=== PATIENT | female | born 1940 | race Caucasian/White ===

== ENCOUNTER 2019-02-11 11:53 | Inpatient (IN) ==
[2019-02-11] MEDS ORDERED: ONDANSETRON 4 MG/2 ML VIAL IV ONE (12:18)
[2019-02-11] MEDS ORDERED: 0.9 % SODIUM CHLORIDE 500 ML IV ONE (12:18)
--- NOTE | 2019-02-11 12:23 | Emergency Department Note ---
General Adult HPI - General Chief complaint: Fall Stated complaint: Fall, n/v Time Seen by Provider: 02/11/19 11:59 Source: EMS Mode of arrival: EMS Limitations: no limitations - History of Present Illness HPI Narrative: 78-year-old female patient presents emergency department via ambulance with chief complaint of worsening productive cough, fever, generalized weakness. 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 Patient has had a cough off and on. Unfortunately, she woke up this morning feeling very fatigued and somewhat nauseated. Her caregiver attempts to get out of bed today and during ambulation the patient was very lethargic and able to move about. She slumped forward and her caregiver had to quickly put her back in bed. Afterward, her caregiver contacted 911 and the patient was transported for evaluation. Upon arrival patient is awake, alert, and talkative. She does mention not feeling well for the last several weeks. She admits to chills today. She denies overt fevers or sweats. She admits to the productive cough producing "green" colored sputum. She denies sinus congestion or runny nose. She denies shortness of breath. She denies retrosternal chest pain or palpitations. She admits to nausea and has vomited once during the ambulance ride to the ER. She denies diarrhea. She admits to focal weakness to his left side associated with the CVA. Her past medical history is consistent for her type 2 diabetes, hypertension, CVA, postherpetic neuralgia, vitamin D deficiency, and dyslipidemia. - Related Data Home Medications Medication Instructions Recorded Confirmed Atorvastatin [Lipitor] 40 mg PO HS 02/11/19 02/11/19 Calcitonin [Miacalcin] 1 spray NS Q48H 02/11/19 02/11/19 Clopidogrel Bisulfate [Plavix] 75 mg PO DAILY 02/11/19 02/11/19 Escitalopram [Lexapro] 20 mg PO DAILY 02/11/19 02/11/19 Gabapentin [Neurontin] 100 mg PO TID 02/11/19 02/11/19 Losartan [Cozaar] 50 mg PO DAILY 02/11/19 02/11/19 Timolol 0.5% Ophth Drops [Timoptic 1 gtt OU BID 02/11/19 02/11/19 0.5% Ophth Drops] metFORMIN [Glucophage] 500 mg PO BID 02/11/19 02/11/19 Allergies Allergy/AdvReac Type Severity Reaction Status Date / Time No Known Drug Allergies Allergy Verified 02/11/19 13:09 Review of Systems All systems ED: reviewed and negative except as stated. Past Medical History - Social History smoking status: Never smoker Physical Exam Limitations: no limitations General appearance: alert, in no apparent distress (no acute respiratory distress.), malaise Head: atraumatic, normocephalic, other (left-sided facial droop noted.) Eye: Present: normal appearance, PERRL, EOMI. Absent: scleral icterus, conjunctival injection ENT: Present: normal oropharynx, mucous membranes moist. Absent: nasal congestion Neck: Present: full ROM, trachea midline. Absent: tenderness, lymphadenopathy Chest: Present: symmetric chest wall rise Respiratory: Present: decreased breath sounds (decreased breath sounds throughout.), other (patient has poor inspiratory effort on exam.). Absent: respiratory distress, rales/crackles, wheezes, prolonged expiratory phase Cardiovascular: Present: regular rate, normal rhythm. Absent: systolic murmur, diastolic murmur Abdominal: Present: soft. Absent: distention, tenderness, guarding, rebound, rigidity, organomegaly, mass Extremities: Present: normal capillary refill. Absent: full ROM (considerable decreased range of motion to the left upper and lower extremity.), tenderness Back: Present: full ROM. Absent: CVA tenderness (R) Neurological: Present: alert, oriented X3, motor sensory deficit (left-sided weakness on exam.), reflexes normal. Absent: normal gait Psychiatric: Present: depressed, other (acutely ill appearing.) Skin: Present: warm, dry Course Course Narrative: Patient is brought into the emergency department and a history and physical examination performed. Saline lock was established and laboratory studies were drawn. Chest x-ray was obtained and reviewed. 500 mL normal saline was started as a bolus. A review of her laboratory studies show following: CBC elevated WBC 13.3, granulocyte percentage 87.5, granulocyte #11.6, all others normal limits. CMP elevated CO2 21, glucose 167, all others the normal limits. Pro- calcitonin less than 0.05. Chest x-ray read as small patchy right basilar infiltrate. Urinalysis showed evidence of infection in the emergency department and was sent to the lab for cough majority testing. Upon reevaluation patient is resting on the emergency room green but continues to cough. I discussed all the findings with the patient and her family and we discussed options for treatment. She is hasn't to go home and attempt outpatient antibiotic therapy due to her immobility and deconditioned state. With this in mind, I reached out to the hospitalist provider (Dr. Thurston) and discussed there are hesitation about being discharged home. Due to her immobility, worsening condition, developing pneumonia, and other comorbidities it was thought best that she be evaluated by the hospitalist and likely admitted for short stay. At this time patient is going to be admitted under the care of the hospitalist (Dr. Thurston). All further treatment decisions and modalities be carried out by hospitalist. Vital Signs Temperature 98.6 F 02/11/19 11:54 Pulse Rate 92 H 02/11/19 11:54 Respiratory Rate 18 02/11/19 11:54 Blood Pressure 128/76 02/11/19 11:54 Pulse Oximetry (%) 90 02/11/19 11:54 Temperature 97.7 F 02/12/19 20:00 Pulse Rate 66 02/12/19 20:00 Respiratory Rate 18 02/12/19 20:00 Blood Pressure 100/68 02/12/19 20:00 Pulse Oximetry (%) 93 02/12/19 20:00 Medical Decision Making - Lab Data Lab results reviewed: Yes I reviewed the patient's lab results. Result diagrams: 02/12/19 05:21 02/12/19 05:21 Lab Results 02/11/19 02/11/19 02/11/19 Range/Units 12:30 12:30 12:30 WBC 13.3 H (4.5-11.0) K/mcL RBC 4.28 (4.00-5.20) M/mcL Hgb 12.5 (12.0-15.0) g/dL Hct 37.5 (36.0-48.0) % POC Hct 37.0 (36.0-48.0) % MCV 87.5 (80.0-100.0) fL MCH 29.2 (26.0-34.0) pg MCHC 33.4 (31.0-36.0) g/dL RDW 14.3 (11.5-14.5) % Plt Count 219 (140-440) K/mcL MPV 8.8 (7.4-10.4) fL Gran % 87.5 H (38.0-78.0) % Lymph % (Auto) 6.1 L (15.5-49.0) % [place] % (Auto) 6.0 (1.0-12.0) % Eos % (Auto) 0.1 (0.0-7.0) % Baso % (Auto) 0.3 (0.0-2.0) % Gran # 11.6 H (1.8-8.0) K/mcL Lymph # (Auto) 0.8 L (1.5-4.8) K/mcL [place] # (Auto) 0.8 (0.1-0.9) K/mcL Eos # (Auto) 0 (0.0-0.7) K/mcL Baso # (Auto) 0 (0.0-0.3) K/mcL POC Sodium 139 (133-145) mmol/L Sodium 138 (133-145) mmol/L POC Potassium 3.5 (3.3-5.1) mmol/L Potassium 3.6 (3.3-5.1) mmol/L POC Chloride 104 (96-108) mmol/L Chloride 102 (96-108) mmol/L Carbon Dioxide 21 L (22-30) mmol/L POC Total CO2 21 L (22-30) mmol/L Anion Gap 15.0 (8-16) POC BUN 15 (8-23) mg/dl BUN 15 (8-23) mg/dl Creatinine 0.8 (0.6-1.1) mg/dl POC Creatinine 0.7 (0.6-1.1) mg/dl GFR Calculation 70 Glucose 167 H (70-105) mg/dL POC Glucose 171 H (70-105) mg/dL Calcium 9.1 (8.6-10.4) mg/dl POC WB Ioniz Calcium 1.07 L (1.16-1.32) mmol/L Total Bilirubin 0.8 (0.0-1.0) mg/dL AST 14 (0-37) U/l ALT 16 (0-40) U/l Alkaline Phosphatase 74 (39-117) U/L C-Reactive Protein (0.0-0.8) mg/dl Total Protein 6.8 (5.9-8.4) gm/dL Albumin 4.3 (3.2-5.2) gm/dL Globulin 2.5 (2.2-3.7) gm/dL Albumin/Globulin Ratio 1.7 (1.0-2.3) Procalcitonin < 0.05 (<0.10) ng/mL Urine Color Urine Appearance Urine pH (5.0-9.0) Ur Specific [place] (1.000-1.035) Urine Protein (NEG) mg/dL Urine Glucose (UA) (NEG) mg/dL Urine Ketones (NEG) mg/dL Urine Occult Blood (<0.03) mg/dL Urine Nitrate (NEG) Urine Bilirubin (NEG) mg/dL Urine Urobilinogen (NEG) mg/dL Ur Leukocyte Esterase (NEG) /uL Urine RBC (0-1) /hpf Urine WBC (0-4) /hpf Ur Squamous Epith Cells (0-4) /hpf Urine Bacteria (0) /hpf Urine Mucus (0) /hpf Ur Culture Indicated? Ur Random Creatinine mg/dl Ur Random Sodium mmol/L 02/11/19 02/11/19 02/11/19 Range/Units 12:30 15:30 15:30 WBC (4.5-11.0) K/mcL RBC (4.00-5.20) M/mcL Hgb (12.0-15.0) g/dL Hct (36.0-48.0) % POC Hct (36.0-48.0) % MCV (80.0-100.0) fL MCH (26.0-34.0) pg MCHC (31.0-36.0) g/dL RDW (11.5-14.5) % Plt Count (140-440) K/mcL MPV (7.4-10.4) fL Gran % (38.0-78.0) % Lymph % (Auto) (15.5-49.0) % [place] % (Auto) (1.0-12.0) % Eos % (Auto) (0.0-7.0) % Baso % (Auto) (0.0-2.0) % Gran # (1.8-8.0) K/mcL Lymph # (Auto) (1.5-4.8) K/mcL [place] # (Auto) (0.1-0.9) K/mcL Eos # (Auto) (0.0-0.7) K/mcL Baso # (Auto) (0.0-0.3) K/mcL POC Sodium (133-145) mmol/L Sodium (133-145) mmol/L POC Potassium (3.3-5.1) mmol/L Potassium (3.3-5.1) mmol/L POC Chloride (96-108) mmol/L Chloride (96-108) mmol/L Carbon Dioxide (22-30) mmol/L POC Total CO2 (22-30) mmol/L Anion Gap (8-16) POC BUN (8-23) mg/dl BUN (8-23) mg/dl Creatinine (0.6-1.1) mg/dl POC Creatinine (0.6-1.1) mg/dl GFR Calculation Glucose (70-105) mg/dL POC Glucose (70-105) mg/dL Calcium (8.6-10.4) mg/dl POC WB Ioniz Calcium (1.16-1.32) mmol/L Total Bilirubin (0.0-1.0) mg/dL AST (0-37) U/l ALT (0-40) U/l Alkaline Phosphatase (39-117) U/L C-Reactive Protein 0.9 H (0.0-0.8) mg/dl Total Protein (5.9-8.4) gm/dL Albumin (3.2-5.2) gm/dL Globulin (2.2-3.7) gm/dL Albumin/Globulin Ratio (1.0-2.3) Procalcitonin (<0.10) ng/mL Urine Color Yellow Urine Appearance Clear Urine pH 6.0 (5.0-9.0) Ur Specific [place] 1.009 (1.000-1.035) Urine Protein Neg (NEG) mg/dL Urine Glucose (UA) Negative (NEG) mg/dL Urine Ketones 20 A (NEG) mg/dL Urine Occult Blood Neg (<0.03) mg/dL Urine Nitrate Pos A (NEG) Urine Bilirubin Neg (NEG) mg/dL Urine Urobilinogen Neg (NEG) mg/dL Ur Leukocyte Esterase 75 A (NEG) /uL Urine RBC 0 (0-1) /hpf Urine WBC 16 H (0-4) /hpf Ur Squamous Epith Cells < 1 (0-4) /hpf Urine Bacteria 0 (0) /hpf Urine Mucus Few (0) /hpf Ur Culture Indicated? Yes Ur Random Creatinine mg/dl Ur Random Sodium 79 mmol/L 02/11/19 Range/Units 15:30 WBC (4.5-11.0) K/mcL RBC (4.00-5.20) M/mcL Hgb (12.0-15.0) g/dL Hct (36.0-48.0) % POC Hct (36.0-48.0) % MCV (80.0-100.0) fL MCH (26.0-34.0) pg MCHC (31.0-36.0) g/dL RDW (11.5-14.5) % Plt Count (140-440) K/mcL MPV (7.4-10.4) fL Gran % (38.0-78.0) % Lymph % (Auto) (15.5-49.0) % [place] % (Auto) (1.0-12.0) % Eos % (Auto) (0.0-7.0) % Baso % (Auto) (0.0-2.0) % Gran # (1.8-8.0) K/mcL Lymph # (Auto) (1.5-4.8) K/mcL [place] # (Auto) (0.1-0.9) K/mcL Eos # (Auto) (0.0-0.7) K/mcL Baso # (Auto) (0.0-0.3) K/mcL POC Sodium (133-145) mmol/L Sodium (133-145) mmol/L POC Potassium (3.3-5.1) mmol/L Potassium (3.3-5.1) mmol/L POC Chloride (96-108) mmol/L Chloride (96-108) mmol/L Carbon Dioxide (22-30) mmol/L POC Total CO2 (22-30) mmol/L Anion Gap (8-16) POC BUN (8-23) mg/dl BUN (8-23) mg/dl Creatinine (0.6-1.1) mg/dl POC Creatinine (0.6-1.1) mg/dl GFR Calculation Glucose (70-105) mg/dL POC Glucose (70-105) mg/dL Calcium (8.6-10.4) mg/dl POC WB Ioniz Calcium (1.16-1.32) mmol/L Total Bilirubin (0.0-1.0) mg/dL AST (0-37) U/l ALT (0-40) U/l Alkaline Phosphatase (39-117) U/L C-Reactive Protein (0.0-0.8) mg/dl Total Protein (5.9-8.4) gm/dL Albumin (3.2-5.2) gm/dL Globulin (2.2-3.7) gm/dL Albumin/Globulin Ratio (1.0-2.3) Procalcitonin (<0.10) ng/mL Urine Color Urine Appearance Urine pH (5.0-9.0) Ur Specific [place] (1.000-1.035) Urine Protein (NEG) mg/dL Urine Glucose (UA) (NEG) mg/dL Urine Ketones (NEG) mg/dL Urine Occult Blood (<0.03) mg/dL Urine Nitrate (NEG) Urine Bilirubin (NEG) mg/dL Urine Urobilinogen (NEG) mg/dL Ur Leukocyte Esterase (NEG) /uL Urine RBC (0-1) /hpf Urine WBC (0-4) /hpf Ur Squamous Epith Cells (0-4) /hpf Urine Bacteria (0) /hpf Urine Mucus (0) /hpf Ur Culture Indicated? Ur Random Creatinine 36.1 mg/dl Ur Random Sodium mmol/L - Radiology Data Radiology results reviewed: Yes I reviewed the patient's radiology results. Ordering Physician: Alexandre Jimenez PA-C Date of Service: 02/11/19 Procedure(s): XR chest 2V Accession Number(s): [id number] CLINICAL INFORMATION: 78 y/o F. Productive cough, worsening weakness. COMPARISON: 09/22/2014 FINDINGS: Myocardial megaly is unchanged. Mild thoracic aortic ectasia also stable. Mediastinum and pulmonary vessels are otherwise normal. Small patchy infiltrate involving the right base. IMPRESSION: Small patchy right basilar infiltrate. Interpreted and Authenticated by: Obinna Rebolledo 02/11/19 - EKG Data EKG #1 EKG attestation: Yes I reviewed and interpreted this EKG., Yes There are no EKG findings of acute coronary syndrome, Yes This EKG will be read by crew member Disposition Pt seen by CARD PUNCHING MACHINE OPERATOR/PA only: Yes Clinical Impression: Status post CVA, Physical deconditioning Pneumonia Qualifiers: Pneumonia type: due to unspecified organism Laterality: right Lung location: lower lobe of lung Qualified Code(s): J18.1 - Lobar pneumonia, unspecified organism Disposition: Xfer As Inpt ([facility]) Condition: Fair Time of Disposition: 16:15
[2019-02-11 12:44] LABS: POC Blood Urea Nitrogen 15 mg/dl (8-23); POC CO2 21 mmol/L (22-30); POC Calcium, Ionized 1.07 mmol/L (1.16-1.32); POC Chloride 104 mmol/L (96-108); POC Creatinine 0.7 mg/dl (0.6-1.1); POC Glucose, Random 171 mg/dL (70-105); POC Potassium 3.5 mmol/L (3.3-5.1); POC Sodium 139 mmol/L (133-145)
[2019-02-11 13:23] LABS: Basophils # (Auto) 0 K/mcL (0.0-0.3); Basophils % (Auto) 0.3 % (0.0-2.0); Eosinophils # (Auto) 0 K/mcL (0.0-0.7); Eosinophils % (Auto) 0.1 % (0.0-7.0); Granulocytes % (Auto) 87.5 % (38.0-78.0); Hematocrit 37.5 % (36.0-48.0); Hemoglobin 12.5 g/dL (12.0-15.0); Lymphocytes # (Auto) 0.8 K/mcL (1.5-4.8); Lymphocytes % (Auto) 6.1 % (15.5-49.0); Mean Cell Volume 87.5 fL (80.0-100.0); Mean Corpuscular HGB Conc 33.4 g/dL (31.0-36.0); Mean Platelet Volume 8.8 fL (7.4-10.4); Monocytes # (Auto) 0.8 K/mcL (0.1-0.9); Platelet Count 219 K/mcL (140-440); RBC 4.28 M/mcL (4.00-5.20); Red Cell Distribution Width 14.3 % (11.5-14.5); WBC 13.3 K/mcL (4.5-11.0)
[2019-02-11 13:41] LABS: ALT/SGPT 16 U/l (0-40); AST/SGOT 14 U/l (0-37); Albumin 4.3 gm/dL (3.2-5.2); Albumin/Globulin Ratio 1.7 (1.0-2.3); Alkaline Phosphatase 74 U/L (39-117); Bilirubin,Total 0.8 mg/dL (0.0-1.0); Blood Urea Nitrogen 15 mg/dl (8-23); Calcium 9.1 mg/dl (8.6-10.4); Carbon Dioxide 21 mmol/L (22-30); Chloride 102 mmol/L (96-108); Globulin 2.5 gm/dL (2.2-3.7); Glomerular Filtration Rate 70; Glucose 167 mg/dL (70-105)
--- NOTE | 2019-02-11 13:51 | XRay Report ---
CLINICAL INFORMATION: 78 y/o F. Productive cough, worsening weakness. COMPARISON: 09/22/2014 FINDINGS: Myocardial megaly is unchanged. Mild thoracic aortic ectasia also stable. Mediastinum and pulmonary vessels are otherwise normal. Small patchy infiltrate involving the right base. IMPRESSION: Small patchy right basilar infiltrate. Interpreted and Authenticated by: Obinna Rebolledo 02/11/19
[2019-02-11 16:28] LABS: Appearance,Urine CLEAR; Bacteria,Urine 0 /hpf (0); Bilirubin,Urine NEG (NEG); Color,Urine YELLOW; Culture Indicated,Urine YES; Glucose,Urine (UA) NEGATIVE (NEG); Ketones,Urine 20 mg/dL (NEG); Leukocyte Esterase,Urine 75 /uL (NEG); Mucus,Urine FEW /hpf (0); Nitrate,Urine POS (NEG); Protein,Urine NEG (NEG); Specific Gravity,Urine 1.009 (1.000-1.035); Urine Blood NEG mg/dL (<0.03); Urine RBC 0 /hpf (0-1); Urine Squamous Epithelial Cell < 1 /hpf (0-4); Urine WBC 16 /hpf (0-4); Urobilinogen,Urine NEG (NEG)
--- NOTE | 2019-02-11 16:32 | Internal Med History&Physical ---
Medical - H&P: HPI Patient information: Note initiated : 02/11/19 at 4:29 pm Service Date, if different from initiated Date: [] Patient: Terri Jones a 78 y/o F admitted on for Fall, N/V. Chief Complaint: [] History of present illness: Ms. Jones is a 78 year old F Patient presents the ED with severe weakness cough fever. Patient resides at home with a rehab care assistant who is her 25 today. Patient developed a cough about a week ago which is becoming progressively worse. Is now productive of green sputum. She had a fever at home of 102. She is felt felt chilled. Per rehab care assistant she is seems a little confused today at times and quite lethargic. She was so weak that she could not get up in fact she fell going to the bathroom. She has history of stroke and is debilitated on the left side from this. Does report occasional coughing with food and drink and feeling like substance goes down the wrong pipe at times. Denies chest pain or stomach pain. Denies omar dyspnea. She has been around sick contacts specifically her rehab care assistant who was sick and was on antibiotics. Has had occasional headaches An episode of nausea vomiting when she was being transported. In the ED she was very weak she was mildly tachycardic at 92 but otherwise stable vital signs she was oxygenating at 90% on room air. Leukocytosis. Is x-ray of the right lower lobe infiltrate. Because of her severe they are underlying debility and her inability to care for herself at home as well as her altered mental status admission was requested. Review of Systems: Pertinent positives as above. Denies /chest or abdominal pain//diarrhea. Remaining 10 point review of system reviewed negative Medical - H&P: PMH Medical history: Past medical history: Diabetes Obesity Stroke with left-sided weakness Hypertension hyperlipidemia Depression Past surgical history: Right total knee arthroplasty next hysterectomy next bilateral shoulder repair Social: Patient denies being smoker but exposed to secondhand smoke No alcohol Ablates with walker Lives by at home with a rehab care assistant Medical - H&P: Meds Home Medications Medication Instructions Recorded Confirmed Type Atorvastatin [Lipitor] 40 mg PO HS 02/11/19 02/11/19 History Calcitonin [Miacalcin] 1 spray NS Q48H 02/11/19 02/11/19 History Clopidogrel Bisulfate [Plavix] 75 mg PO DAILY 02/11/19 02/11/19 History Escitalopram [Lexapro] 20 mg PO DAILY 02/11/19 02/11/19 History Gabapentin [Neurontin] 100 mg PO TID 02/11/19 02/11/19 History Losartan [Cozaar] 50 mg PO DAILY 02/11/19 02/11/19 History Timolol 0.5% Ophth Drops [Timoptic 1 gtt OU BID 02/11/19 02/11/19 History 0.5% Ophth Drops] metFORMIN [Glucophage] 500 mg PO BID 02/11/19 02/11/19 History Allergies Allergy/AdvReac Type Severity Reaction Status Date / Time No Known Drug Allergies Allergy Verified 02/11/19 13:09 Medical - H&P: Exam - Constitutional Vitals: Temp Pulse Resp BP Pulse Ox 98.6 F 92 H 18 128/76 90 02/11/19 11:54 02/11/19 11:54 02/11/19 11:54 02/11/19 11:54 02/11/19 11:54 Exam: General: Alert, Awake, No acute Distress, obese Eyes/N/T: EOMI, PEERL, DMM Head/Neck: neck supple, normocephalic atraumatic CV: RRR, No murmurs, normal s1/s2 Pulm: RLL rhonchi/rales, mild b/l exp wheezing Abd: soft, nontender, +BS x4 Ext: no clubbing/cyanosis/edema Neuro: Alert, moves all extremities but much weak on left d/t residual left hemiparesis from stroke, PERRL skin: warm/dry Medical - H&P: Reslt - Labs CBC & Chem 7: 02/11/19 12:30 02/11/19 12:30 Labs: Short CBC 02/11/19 Range/Units 12:30 WBC 13.3 H (4.5-11.0) K/mcL Hgb 12.5 (12.0-15.0) g/dL Hct 37.5 (36.0-48.0) % Plt Count 219 (140-440) K/mcL BMP 02/11/19 12:30 Sodium 138 Potassium 3.6 Chloride 102 Carbon Dioxide 21 L BUN 15 Creatinine 0.8 Glucose 167 H Calcium 9.1 Liver Function 02/11/19 Range/Units 12:30 Total Bilirubin 0.8 (0.0-1.0) mg/dL AST 14 (0-37) U/l ALT 16 (0-40) U/l Alkaline Phosphatase 74 (39-117) U/L Albumin 4.3 (3.2-5.2) gm/dL Urine 02/11/19 Range/Units 15:30 Urine Color Yellow Urine Appearance Clear Urine pH 6.0 (5.0-9.0) Ur Specific [place] 1.009 (1.000-1.035) Urine Protein Neg (NEG) mg/dL Urine Glucose (UA) Negative (NEG) mg/dL - Impressions Test x-ray with right lower lobe infiltrate Medical - H&P: A/P - Narrative A/P Narrative: A: *CAP (RLL): *AMS (mild confusion, severe lethargy): *Analyzed weakness/deconditioning/debility: *DM: *h/o CVA w/residual left hemiparesis: *HTN/HLD: *Depression * P: -Abx, pending SC -IS/Acapella -IVF's -SSI and metformin -cont plavix/statin -cont ARB -pt/ot -ST eval as concern may have an aspiration component - -ppx: lovenox DNR
[2019-02-11] MEDS ORDERED: POTASSIUM CHLORIDE 20 MEQ TABLET PO PRN ×2 (17:38)
[2019-02-11] MEDS ORDERED: MAGNESIUM SULFATE 2 GM/50 ML BAG IV PRN (17:38)
[2019-02-11] MEDS ORDERED: ACETAMINOPHEN 325 MG TABLET PO PRN (17:38)
[2019-02-11] MEDS ORDERED: POLYETHYLENE GLYCOL 3350 17 GM PACKET PO PRN (17:38)
[2019-02-11] MEDS ORDERED: 0.9 % SODIUM CHLORIDE 1,000 ML IV SCH (17:38)
[2019-02-11] MEDS ORDERED: DEXTROSE 31 GM ORAL.SUSP PO PRN (17:38)
[2019-02-11] MEDS ORDERED: IPRATROPIUM/ALBUTEROL 3 ML AMPUL.NEB NEB PRN (17:38)
[2019-02-11] MEDS ORDERED: DEXTROSE 50% 50 ML VIAL IV PRN (17:38)
[2019-02-11] MEDS ORDERED: POTASSIUM CHLORIDE 40 MEQ in DEXTROSE 5% IN WATER 500 ML IV PRN (17:38)
[2019-02-11] MEDS ORDERED: ONDANSETRON 4 MG/2 ML VIAL IV PRN (17:38)
[2019-02-11] MEDS ORDERED: cefTRIAXone 2 GM VIAL ONE (18:53)
[2019-02-11] MEDS: cefTRIAXone 2 GM in DEXTROSE 5% IN WATER 50 ML IV SCH (19:12)
[2019-02-11] MEDS: metFORMIN 500 MG TAB.XL.24H PO SCH (19:12)
[2019-02-11] MEDS: AZITHROMYCIN 500 MG in DEXTROSE 5% IN WATER 250 ML IV SCH (19:59)
[2019-02-11] MEDS: ATORVASTATIN 40 MG TABLET PO SCH (20:56)
[2019-02-11] MEDS: INSULIN LISPRO 1 UNIT/0.01 ML UNIT SQ SCH ×2 (20:56→22:30)
[2019-02-11] MEDS: GABAPENTIN 100 MG CAPSULE PO SCH (20:57)
[2019-02-11] MEDS: 0.9 % SODIUM CHLORIDE 10 ML SYRINGE IV SCH (20:57)
[2019-02-11] MEDS: DOCUSATE SODIUM 100 MG CAPSULE PO SCH (20:57)
[2019-02-11] MEDS: TIMOLOL 0.5% OPHTH DROPS BOTTLE 5ML OU SCH (20:57)
[2019-02-11] MEDS ORDERED: SENNOSIDES 1 TABLET PO PRN (21:00)
[2019-02-12] MEDS: 0.9 % SODIUM CHLORIDE 10 ML SYRINGE IV SCH ×3 (05:11→20:50)
[2019-02-12 06:27] LABS: Hematocrit 32.6 % (36.0-48.0); Hemoglobin 10.7 g/dL (12.0-15.0); Mean Corpuscular HGB Conc 32.8 g/dL (31.0-36.0); Mean Platelet Volume 8.8 fL (7.4-10.4); Platelet Count 218 K/mcL (140-440); RBC 3.66 M/mcL (4.00-5.20); Red Cell Distribution Width 14.2 % (11.5-14.5); WBC 13.3 K/mcL (4.5-11.0)
[2019-02-12 06:49] LABS: ALT/SGPT 14 U/l (0-40); AST/SGOT 12 U/l (0-37); Albumin 3.5 gm/dL (3.2-5.2); Albumin/Globulin Ratio 1.6 (1.0-2.3); Alkaline Phosphatase 57 U/L (39-117); Bilirubin,Direct < 0.2 mg/dL (0.0-0.3); Bilirubin,Total 0.7 mg/dL (0.0-1.0); Blood Urea Nitrogen 17 mg/dl (8-23); Calcium 8.4 mg/dl (8.6-10.4); Carbon Dioxide 24 mmol/L (22-30); Chloride 104 mmol/L (96-108); Globulin 2.2 gm/dL (2.2-3.7); Glomerular Filtration Rate 39; Glucose 138 mg/dL (70-105); Lactate Dehydrogenase 135 U/L (94-250); Triglycerides 59 mg/dl (<150); Uric Acid 4.9 mg/dL (2.5-8.0)
[2019-02-12 07:32] LABS: Band Neutrophils % 12 % (0-10); Hypochromasia FEW (NONE SEEN); Lymphocytes % 15 % (15-49); Monocytes % (Manual) 6 % (1-12); Ovalocytes OCC (NONE SEEN); Platelet Estimate NORMAL (NORMAL); Poikilocytosis FEW (NONE SEEN); RBC Morphology ABNORM (NORMAL); Segmented Neutrophils % 67 % (38-78); Spherocytes FEW (NONE SEEN)
[2019-02-12] MEDS: INSULIN LISPRO 1 UNIT/0.01 ML UNIT SQ SCH ×4 (07:48→20:50)
[2019-02-12] MEDS: metFORMIN 500 MG TAB.XL.24H PO SCH (07:49)
--- NOTE | 2019-02-12 07:54 | Internal Med Progress Note ---
Medical - PN: Subj Patient information: Note initiated : 02/12/19 at 7:52 am Service Date, if different from initiated Date: [] Patient: Terri Jones 78 y/o F admitted on 02/11/19 for Fall, N/V. Chief Complaint: [] Interval history: Ms. Jones is a 78 year old F Patient presents the ED with severe weakness cough fever. Patient resides at home with a environmental aid who is her 24 today. Patient developed a cough about a week ago which is becoming progressively worse. Is now productive of green sputum. She had a fever at home of 102. She is felt felt chilled. Per environmental aid she is seems a little confused today at times and quite lethargic. She was so weak that she could not get up in fact she fell going to the bathroom. She has history of stroke and is debilitated on the left side from this. Does report occasional coughing with food and drink and feeling like substance goes down the wrong pipe at times. Denies chest pain or stomach pain. Denies omar dyspnea. She has been around sick contacts specifically her environmental aid who was sick and was on antibiotics. Has had occasional headaches An episode of nausea vomiting when she was being transported. In the ED she was very weak she was mildly tachycardic at 92 but otherwise stable vital signs she was oxygenating at 90% on room air. Leukocytosis. Is x-ray of the right lower lobe infiltrate. Because of her severe they are underlying debility and her inability to care for herself at home as well as her altered mental status admission was requested. 02/12 Cough seems to be improving. Denies shortness of breath. No overnight events. Sats mid 90s on 1 L nasal cannula. Review of Systems: denies headache/fever/chills/nausea/vomiting/chest or abdominal pain/diarrhea. Otherwise see above - Constitutional Vitals: Vital Signs Temp Pulse Resp BP Pulse Ox 98.4 F 61 16 92/52 95 02/12/19 07:46 02/12/19 07:46 02/12/19 07:46 02/12/19 07:46 02/12/19 07:46 Period Temp Pulse Resp BP Sys/Hill Pulse Ox Last 24 Hr 98.1 F-100 F 61-92 13-24 92-128/52-76 88-99 Intake and Output 02/11/19 02/12/19 02/12/19 21:59 05:59 13:59 Intake Total 50 600 Output Total 1 2 Balance 49 598 Weight 107.955 kg Intake & Output: Intake & Output 02/11/19 02/12/19 02/12/19 21:59 05:59 13:59 Intake Total 50 600 Output Total 1 2 Balance 49 598 Weight 107.955 kg Intake: IV 50 250 Zithromax 500 mg In Dextrose 5% 250 in Water 250 ml @ 250 mls/hr IV DAILY [facility] Rx#:[id number] Rocephin 2 gm In Dextrose 5% in 50 Water 50 ml @ 100 mls/hr IV DAILY [facility] Rx#:[id number] Oral 350 Output: # of times incontinent of urine 1 2 Other: Meal Dinner Percent of Meal Consumed 100% Feeding Ability Independent Urine Appearance Straight Cloudy Urine Color Dark Yellow Straight Pale Urine Odor Strong Straight Strong Exam: General: Alert, Awake, No acute Distress, obese Eyes/N/T: EOMI, Head/Neck: neck supple, CV: RRR, No murmurs, Pulm: RLL rhonchi/rales improving, occasional mild b/l exp wheezing improved Abd: soft, nontender, +BS x4 Ext: no clubbing/cyanosis, trace b/l LE edema Neuro: Alert, moves all extremities but much weaker on left d/t residual left hemiparesis from stroke, skin: warm/dry Medical - PN: Obj Da - Labs CBC & Chem 7: 02/12/19 05:21 02/12/19 05:21 Labs: Abnormal Lab Results 02/12/19 02/12/19 02/11/19 05:21 05:21 15:30 WBC 13.3 H RBC 3.66 L Hgb 10.7 L Hct 32.6 L Gran % Lymph % (Auto) Gran # Lymph # (Auto) Band Neutrophils % 12 H RBC Morphology Abnorm A Hypochromasia Few A Poikilocytosis Few A Spherocytes Few A Ovalocytes Occ A Carbon Dioxide POC Total CO2 Creatinine 1.3 H Glucose 138 H POC Glucose Calcium 8.4 L POC WB Ioniz Calcium Magnesium 1.3 L C-Reactive Protein Total Protein 5.7 L Urine Ketones 20 A Urine Nitrate Pos A Ur Leukocyte Esterase 75 A Urine WBC 16 H 11/10/2302/11/19 02/11/19 12:30 12:30 12:30 WBC 13.3 H RBC Hgb Hct Gran % 87.5 H Lymph % (Auto) 6.1 L Gran # 11.6 H Lymph # (Auto) 0.8 L Band Neutrophils % RBC Morphology Hypochromasia Poikilocytosis Spherocytes Ovalocytes Carbon Dioxide 21 L POC Total CO2 21 L Creatinine Glucose 167 H POC Glucose 171 H Calcium POC WB Ioniz Calcium 1.07 L Magnesium C-Reactive Protein 0.9 H Total Protein Urine Ketones Urine Nitrate Ur Leukocyte Esterase Urine WBC Meds: Medications Acetaminophen (Tylenol) 650 mg PO Q6HP PRN PRN Reason: PAIN/FEVER > 101 Albuterol/Ipratropium (Duoneb) 3 ml NEB Q4HP PRN PRN Reason: Shortness Of Breath Atorvastatin Calcium (Lipitor) 40 mg PO HS [facility] Last Admin: 02/11/19 20:56 Dose: 40 mg Documented by: Calcitonin [place] (Miacalcin) 1 spray NS Q48H [facility] Clopidogrel Bisulfate (Plavix) 75 mg PO DAILY [facility] Dextrose (Dextrose 50%) 0 ml IV UD PRN PRN Reason: Hypoglycemia Diagnostic Test (Pha) (Accu-Chek) 1 each FS ACHS [facility] Last Admin: 02/11/19 22:29 Dose: Not Given Documented by: Docusate Sodium (Colace) 100 mg PO BID [facility] Last Admin: 02/11/19 20:57 Dose: 100 mg Documented by: Enoxaparin Sodium (Lovenox) 40 mg SQ DAILY [facility] Escitalopram Oxalate (Lexapro) 20 mg PO DAILY [facility] Gabapentin (Neurontin) 100 mg PO TID [facility] Last Admin: 02/11/19 20:57 Dose: 100 mg Documented by: Glucose (Insta-Glucose) 15 gm PO PRN PRN PRN Reason: Hypoglycemia Azithromycin 500 mg/ Dextrose 250 mls @ 250 mls/hr IV DAILY [facility]; Protocol Stop: 02/13/19 09:59 Last Infusion: 02/11/19 22:30 Dose: Infused Documented by: Potassium Chloride 40 meq/ (Dextrose) 520 mls @ 130 mls/hr IV UD PRN PRN Reason: Potassium < 3 Magnesium Sulfate (Magnesium Sulfate) 2 gm in 50 mls @ 50 mls/hr IV UD PRN PRN Reason: Magnesium </= 1.6 Ceftriaxone Sodium 2 gm/ (Dextrose) 50 mls @ 100 mls/hr IV DAILY [facility]; Protocol Last Infusion: 02/11/19 20:02 Dose: Infused Documented by: Insulin Human Lispro (Humalog) 0 unit SQ ACHS [facility]; Protocol Last Admin: 02/12/19 07:48 Dose: 2 units Documented by: Losartan Potassium (Cozaar) 50 mg PO DAILY [facility] Metformin HCl (Glucophage) 500 mg PO BIDCC [facility] Last Admin: 02/12/19 07:49 Dose: 500 mg Documented by: Ondansetron HCl (Zofran) 4 mg IV Q4HP PRN PRN Reason: Nausea And Vomiting Pneumococcal Polyvalent Vaccine (Pneumovax 23) 0.5 ml IM .ONCE ONE Stop: 02/12/19 10:01 Polyethylene Glycol (Miralax) 17 gm PO DAILYP PRN PRN Reason: Constipation Potassium Chloride (Kdur) 40 meq PO UD PRN PRN Reason: Potssium is 3-3.5 Potassium Chloride (Kdur) 40 meq PO UD PRN PRN Reason: Potassium < 3 Senna (Senokot) 2 tab PO HSP PRN PRN Reason: Constipation Sodium Chloride (Saline Flush) 10 ml IV Q8 [facility] Last Admin: 02/12/19 05:11 Dose: Not Given Documented by: Timolol Maleate (Timoptic 0.5% Ophth Drops) 1 gtt OU BID [facility] Last Admin: 02/11/19 20:57 Dose: 1 gtt Documented by: Medical - PN: A/P - Time Spent With Patient Total time spent is greater than 50% in coordination of care (as documented) at patient's floor/unit and/or counseling patient: - Narrative A/P Narrative: A: *CAP (RLL): *Acute hypoxic Resp Failure: 2/2 above -on 1L NC *UTI: *SIRS: *AMS (mild confusion, severe lethargy): improved *Generalized weakness/deconditioning/debility: *DM: *h/o CVA w/residual left hemiparesis: *HTN/HLD: *Depression: *HypoMag: *?CLARIBEL on CKD II: bump in Cr, if real, then possibly from low perfusion/oxygen delivery from hypoxia/low BP P: -Abx, pending SC/UC -IS/Acapella -wean off O2 -urine studies -mag replace -SSI and hold metformin for now -cont plavix/statin -hold ARB for renal -pt/ot -ST eval as concern may have an aspiration component - -ppx: lovenox DNR Medical - PN: Qual - VTE Deep Vein Thrombosis/Pulmonary Embolism Present on Admission: No
[2019-02-12] MEDS ORDERED: MAGNESIUM SULFATE 2 GM/50 ML BAG IV ONE (07:57)
[2019-02-12] MEDS ORDERED: LOSARTAN 50 MG TABLET PO SCH (09:00)
[2019-02-12] MEDS ORDERED: cefTRIAXone 2 GM VIAL ONE (09:09)
[2019-02-12] MEDS: ENOXAPARIN 40 MG/0.4 ML SYRINGE SQ SCH (09:13)
[2019-02-12] MEDS: AZITHROMYCIN 500 MG in DEXTROSE 5% IN WATER 250 ML IV SCH (09:13)
[2019-02-12] MEDS: CLOPIDOGREL 75 MG TABLET PO SCH (09:14)
[2019-02-12] MEDS: DOCUSATE SODIUM 100 MG CAPSULE PO SCH ×2 (09:14→20:50)
[2019-02-12] MEDS: ESCITALOPRAM 20 MG TABLET PO SCH (09:15)
[2019-02-12] MEDS: GABAPENTIN 100 MG CAPSULE PO SCH ×3 (09:15→20:50)
[2019-02-12] MEDS: cefTRIAXone 2 GM in DEXTROSE 5% IN WATER 50 ML IV SCH (09:18)
[2019-02-12] MEDS: TIMOLOL 0.5% OPHTH DROPS BOTTLE 5ML OU SCH ×2 (09:21→20:50)
[2019-02-12] MEDS: CALCITONIN NASAL SPRAY 3.7ML BOTTLE NS SCH (09:21)
[2019-02-12] MEDS ORDERED: PNEUMOCOCCAL 23-VAL P-SAC VAC 0.5 ML SYRINGE IM ONE (10:00)
[2019-02-12] MEDS ORDERED: FLU VACC QS2019-20(6MOS UP)/PF 60 MCG/0.5 ML SYRINGE IM ONE (10:00)
--- NOTE | 2019-02-12 10:26 | XRay Report ---
CLINICAL INFORMATION: PNA COMPARISON: 02/11/2019 FINDINGS: Mild cardiomegaly is accentuated by suboptimal inspiratory result, right rotation, lordotic positioning and portable technique. Mediastinum and pulmonary vessels are normal. Right basilar infiltrate has cleared. No effusions IMPRESSION: Mild stable cardiomegaly. Interval clearance right basilar infiltrate. No acute disease Interpreted and Authenticated by: Obinna Rebolledo 02/12/19
[2019-02-12] MEDS ORDERED: 0.9 % SODIUM CHLORIDE 1,000 ML IV SCH (11:30)
[2019-02-12] MEDS: ATORVASTATIN 40 MG TABLET PO SCH (20:50)
[2019-02-13] MEDS: 0.9 % SODIUM CHLORIDE 10 ML SYRINGE IV SCH ×3 (04:25→20:52)
[2019-02-13 05:56] LABS: Hematocrit 33.4 % (36.0-48.0); Mean Cell Volume 89.3 fL (80.0-100.0); Mean Corpuscular HGB Conc 33.1 g/dL (31.0-36.0); Mean Platelet Volume 9.1 fL (7.4-10.4); Platelet Count 204 K/mcL (140-440); RBC 3.74 M/mcL (4.00-5.20); Red Cell Distribution Width 14.3 % (11.5-14.5); WBC 7.3 K/mcL (4.5-11.0)
[2019-02-13 06:21] LABS: ALT/SGPT 17 U/l (0-40); AST/SGOT 14 U/l (0-37); Albumin 3.2 gm/dL (3.2-5.2); Albumin/Globulin Ratio 1.3 (1.0-2.3); Alkaline Phosphatase 55 U/L (39-117); Bilirubin,Direct < 0.2 mg/dL (0.0-0.3); Bilirubin,Total 0.4 mg/dL (0.0-1.0); Blood Urea Nitrogen 15 mg/dl (8-23); Calcium 8.3 mg/dl (8.6-10.4); Carbon Dioxide 22 mmol/L (22-30); Chloride 108 mmol/L (96-108); Globulin 2.5 gm/dL (2.2-3.7); Glomerular Filtration Rate 54; Glucose 121 mg/dL (70-105); Lactate Dehydrogenase 125 U/L (94-250); Phosphorous 2.9 mg/dL (2.7-4.5); Triglycerides 72 mg/dl (<150); Uric Acid 5.2 mg/dL (2.5-8.0)
[2019-02-13 07:05] LABS: Band Neutrophils % 3 % (0-10); Basophils % (Manual) 1 % (0-2); Eosinophils % (Manual) 1 % (0-7); Lymphocytes % 29 % (15-49); Monocytes % (Manual) 5 % (1-12); Platelet Estimate NORMAL (NORMAL); RBC Morphology NORMAL (NORMAL); Reactive Lymphocytes 1 % (0-2); Segmented Neutrophils % 60 % (38-78)
--- NOTE | 2019-02-13 07:50 | Internal Med Progress Note ---
Medical - PN: Subj Patient information: Note initiated : 02/13/19 at 7:46 am Service Date, if different from initiated Date: [] Patient: Terri Jones a 78 y/o F admitted on 02/11/19 for Fall, N/V. Chief Complaint: [] Interval history: Ms. Jones is a 78 year old F Patient presents the ED with severe weakness cough fever. Patient resides at home with a legal investigator who is her 25 today. Patient developed a cough about a week ago which is becoming progressively worse. Is now productive of green sputum. She had a fever at home of 102. She is felt felt chilled. Per legal investigator she is seems a little confused today at times and quite lethargic. She was so weak that she could not get up in fact she fell going to the bathroom. She has history of stroke and is debilitated on the left side from this. Does report occasional coughing with food and drink and feeling like substance goes down the wrong pipe at times. Denies chest pain or stomach pain. Denies omar dyspnea. She has been around sick contacts specifically her legal investigator who was sick and was on antibiotics. Has had occasional headaches An episode of nausea vomiting when she was being transported. In the ED she was very weak she was mildly tachycardic at 92 but otherwise stable vital signs she was oxygenating at 90% on room air. Leukocytosis. Is x-ray of the right lower lobe infiltrate. Because of her severe they are underlying debility and her inability to care for herself at home as well as her altered mental status admission was requested. 02/12 Cough seems to be improving. Denies shortness of breath. No overnight events. Sats mid 90s on 1 L nasal cannula. 02/13 Feeling much better today. Slept well. On room air this morning. Feels constipated but otherwise no new complaints. Not complaining of cough this morning. No shortness of breath. Review of Systems: denies headache/fever/chills/nausea/vomiting/chest or abdominal pain/diarrhea. Otherwise see above - Constitutional Vitals: Vital Signs Temp Pulse Resp BP Pulse Ox 97.6 F 66 16 106/67 92 02/13/19 04:00 02/13/19 04:00 02/13/19 04:00 02/13/19 04:00 02/13/19 04:00 Period Temp Pulse Resp BP Sys/Hill Pulse Ox Last 24 Hr 97.6 F-98.7 F 54-66 16-20 100-110/54-68 91-96 Intake and Output 02/12/19 02/13/19 02/13/19 21:59 05:59 13:59 Intake Total 1950 Output Total 202 301 Balance 1748 -301 Weight 106.367 kg Intake & Output: Intake & Output 02/12/19 02/13/19 02/13/19 21:59 05:59 13:59 Intake Total 1950 Output Total 202 301 Balance 1748 -301 Weight 106.367 kg Intake: IV 1350 Sodium Chloride 0.9% 1,000 ml @ 1000 75 mls/hr IV .[id number] [facility] Rx#: [id number] Zithromax 500 mg In Dextrose 5% 250 in Water 250 ml @ 250 mls/hr IV DAILY [facility] Rx#:[id number] Rocephin 2 gm In Dextrose 5% in 50 Water 50 ml @ 100 mls/hr IV DAILY [facility] Rx#:[id number] Oral 600 Output: Void Amount 200 300 # of times incontinent of urine 2 1 Other: Meal Dinner Percent of Meal Consumed 75% Feeding Ability Independent Urine Color Dark Yellow # Voids 1 # of times incontinent of 2 Bowels Exam: General: Alert, Awake, No acute Distress, obese Eyes/N/T: EOMI, Head/Neck: neck supple, CV: RRR, No murmurs, Pulm: much improved RLL rhonchi, no wheezing today Abd: soft, nontender, +BS x4 Ext: no clubbing/cyanosis, trace b/l LE edema Neuro: Alert, moves all extremities but much weaker on left d/t residual left hemiparesis from stroke, skin: warm/dry Medical - PN: Obj Da - Labs CBC & Chem 7: 02/13/19 04:51 02/13/19 04:51 Labs: Abnormal Lab Results 02/13/19 02/13/19 02/12/19 04:51 04:51 05:21 WBC RBC 3.74 L Hgb 11.0 L Hct 33.4 L Gran % Lymph % (Auto) Gran # Lymph # (Auto) Band Neutrophils % RBC Morphology Hypochromasia Poikilocytosis Spherocytes Ovalocytes Carbon Dioxide POC Total CO2 Creatinine 1.3 H Glucose 121 H 138 H POC Glucose Calcium 8.3 L 8.4 L POC WB Ioniz Calcium Magnesium 1.3 L C-Reactive Protein Total Protein 5.7 L 5.7 L Urine Ketones Urine Nitrate Ur Leukocyte Esterase Urine WBC 02/12/19 02/11/19 02/11/19 05:21 15:30 12:30 WBC 13.3 H RBC 3.66 L Hgb 10.7 L Hct 32.6 L Gran % Lymph % (Auto) Gran # Lymph # (Auto) Band Neutrophils % 12 H RBC Morphology Abnorm A Hypochromasia Few A Poikilocytosis Few A Spherocytes Few A Ovalocytes Occ A Carbon Dioxide POC Total CO2 Creatinine Glucose POC Glucose Calcium POC WB Ioniz Calcium Magnesium C-Reactive Protein 0.9 H Total Protein Urine Ketones 20 A Urine Nitrate Pos A Ur Leukocyte Esterase 75 A Urine WBC 16 H 02/11/19 02/11/19 12:30 12:30 WBC 13.3 H RBC Hgb Hct Gran % 87.5 H Lymph % (Auto) 6.1 L Gran # 11.6 H Lymph # (Auto) 0.8 L Band Neutrophils % RBC Morphology Hypochromasia Poikilocytosis Spherocytes Ovalocytes Carbon Dioxide 21 L POC Total CO2 21 L Creatinine Glucose 167 H POC Glucose 171 H Calcium POC WB Ioniz Calcium 1.07 L Magnesium C-Reactive Protein Total Protein Urine Ketones Urine Nitrate Ur Leukocyte Esterase Urine WBC Meds: Medications Acetaminophen (Tylenol) 650 mg PO Q6HP PRN PRN Reason: PAIN/FEVER > 101 Albuterol/Ipratropium (Duoneb) 3 ml NEB Q4HP PRN PRN Reason: Shortness Of Breath Atorvastatin Calcium (Lipitor) 40 mg PO HS [facility] Last Admin: 02/12/19 20:50 Dose: 40 mg Documented by: Calcitonin [place] (Miacalcin) 1 spray NS Q48H [facility] Last Admin: 02/12/19 09:21 Dose: 1 spray Documented by: Clopidogrel Bisulfate (Plavix) 75 mg PO DAILY [facility] Last Admin: 02/12/19 09:14 Dose: 75 mg Documented by: Dextrose (Dextrose 50%) 0 ml IV UD PRN PRN Reason: Hypoglycemia Diagnostic Test (Pha) (Accu-Chek) 1 each FS ACHS [facility] Last Admin: 02/12/19 20:26 Dose: 1 each Documented by: Docusate Sodium (Colace) 100 mg PO BID [facility] [place] Last Admin: 02/12/19 20:50 Dose: 100 mg Documented by: Enoxaparin Sodium (Lovenox) 40 mg SQ DAILY [facility] Last Admin: 02/12/19 09:13 Dose: 40 mg Documented by: Escitalopram Oxalate (Lexapro) 20 mg PO DAILY [facility] Last Admin: 02/12/19 09:15 Dose: 20 mg Documented by: Gabapentin (Neurontin) 100 mg PO TID [facility] [place] Last Admin: 02/12/19 20:50 Dose: 100 mg Documented by: Glucose (Insta-Glucose) 15 gm PO PRN PRN PRN Reason: Hypoglycemia Azithromycin 500 mg/ Dextrose 250 mls @ 250 mls/hr IV DAILY [facility] [place]; Protocol Stop: 02/13/19 09:59 Last Infusion: 02/12/19 14:35 Dose: Infused Documented by: Potassium Chloride 40 meq/ (Dextrose) 520 mls @ 130 mls/hr IV UD PRN PRN Reason: Potassium < 3 Magnesium Sulfate (Magnesium Sulfate) 2 gm in 50 mls @ 50 mls/hr IV UD PRN PRN Reason: Magnesium </= 1.6 Ceftriaxone Sodium 2 gm/ (Dextrose) 50 mls @ 100 mls/hr IV DAILY [facility]; Protocol Last Infusion: 02/12/19 14:34 Dose: Infused Documented by: Insulin Human Lispro (Humalog) 0 unit SQ ACHS [facility]; Protocol Last Admin: 02/12/19 20:50 Dose: 2 units Documented by: Ondansetron HCl (Zofran) 4 mg IV Q4HP PRN PRN Reason: Nausea And Vomiting Polyethylene Glycol (Miralax) 17 gm PO DAILYP PRN PRN Reason: Constipation Potassium Chloride (Kdur) 40 meq PO UD PRN PRN Reason: Potssium is 3-3.5 Potassium Chloride (Kdur) 40 meq PO UD PRN PRN Reason: Potassium < 3 Senna (Senokot) 2 tab PO HSP PRN PRN Reason: Constipation Sodium Chloride (Saline Flush) 10 ml IV Q8 [facility] Last Admin: 02/13/19 04:25 Dose: 10 ml Documented by: Timolol Maleate (Timoptic 0.5% Ophth Drops) 1 gtt OU BID [facility] Last Admin: 02/12/19 20:50 Dose: 1 gtt Documented by: Medical - PN: A/P - Time Spent With Patient Total time spent is greater than 50% in coordination of care (as documented) at patient's floor/unit and/or counseling patient: - Narrative A/P Narrative: A: *CAP (RLL): ST eval ok *Acute hypoxic Resp Failure: 2/ above -now on room air *UTI(GNB): *SIRS: leukocytosis/bandemia resolved *AMS (mild confusion, severe lethargy): improved *Generalized weakness/deconditioning/debility: *DM: *h/o CVA w/residual left hemiparesis: *HTN/HLD: *Depression: *HypoMag: improved *CLARIBEL on CKD II: resolved with IVF P: -Abx, pending SC/UC -IS/Acapella -SSI and hold metformin for now -cont plavix/statin -hold ARB for renal, bp controlled without -pt/ot - -ppx: lovenox DNR Medical - PN: Qual - VTE Deep Vein Thrombosis/Pulmonary Embolism Present on Admission: No
[2019-02-13] MEDS: ESCITALOPRAM 20 MG TABLET PO SCH (09:19)
[2019-02-13] MEDS: GABAPENTIN 100 MG CAPSULE PO SCH ×3 (09:19→20:51)
[2019-02-13] MEDS: cefTRIAXone 2 GM in DEXTROSE 5% IN WATER 50 ML IV SCH (09:19)
[2019-02-13] MEDS: DOCUSATE SODIUM 100 MG CAPSULE PO SCH ×2 (09:19→20:51)
[2019-02-13] MEDS: CLOPIDOGREL 75 MG TABLET PO SCH (09:19)
[2019-02-13] MEDS: INSULIN LISPRO 1 UNIT/0.01 ML UNIT SQ SCH ×4 (09:19→20:52)
[2019-02-13] MEDS: ENOXAPARIN 40 MG/0.4 ML SYRINGE SQ SCH (09:20)
[2019-02-13] MEDS: TIMOLOL 0.5% OPHTH DROPS BOTTLE 5ML OU SCH ×2 (09:26→20:51)
[2019-02-13] MEDS ORDERED: POLYETHYLENE GLYCOL 3350 17 GM PACKET PO ONE (10:52)
[2019-02-13] MEDS ORDERED: SENNOSIDES 1 TABLET PO ONE (10:52)
--- NOTE | 2019-02-13 11:02 | Discharge Summary ---
Medical - DS: Prov Patient information: Note initiated : 02/13/19 at 10:58 am Service Date, if different from initiated Date: [] Patient: Terri Jones 78 y/o F admitted on 02/11/19 for Fall, N/V. Chief Complaint: [] Date of admission: 02/11/19 17:27 Discharge date: 02/14/19 Primary care physician: Bruna Alfonso Consults: 02/11/19 15:59 Consult to Physician [CONS] Stat Comment: Consulting Provider: Jose Carlos Thurston Reason For Exam: Physician to Consult Medical - DS: Meds - Discharge Medications Prescriptions: Cefdinir 300 mg PO BID #6 cap Active and Home Medications: Home Medications Atorvastatin [Lipitor] 40 mg PO HS 02/11/19 [History Confirmed 02/11/19 Last Taken Unknown] Calcitonin [Miacalcin] 1 spray NS Q48H 02/11/19 [History Confirmed 02/11/19 Last Taken Unknown] Clopidogrel Bisulfate [Plavix] 75 mg PO DAILY 02/11/19 [History Confirmed 02/11/19 Last Taken Unknown] Escitalopram [Lexapro] 20 mg PO DAILY 02/11/19 [History Confirmed 02/11/19 Last Taken Unknown] Gabapentin [Neurontin] 100 mg PO TID 02/11/19 [History Confirmed 02/11/19 Last Taken Unknown] Losartan [Cozaar] 50 mg PO DAILY 02/11/19 [History Confirmed 02/11/19 Last Taken Unknown] Timolol 0.5% Ophth Drops [Timoptic 0.5% Ophth Drops] 1 gtt OU BID 02/11/19 [History Confirmed 02/11/19 Last Taken Unknown] metFORMIN [Glucophage] 500 mg PO BID 02/11/19 [History Confirmed 02/11/19 Last Taken Unknown] Medical - DS: Hosp Hospital Course: Ms. Jones is a 78 year old F Patient presents the ED with severe weakness cough fever. Patient resides at home with a machinist instructor who is her 25 today. Patient developed a cough about a week ago which is becoming progressively worse. Is now productive of green sputum. She had a fever at home of 102. She is felt felt chilled. Per machinist instructor she is seems a little confused today at times and quite lethargic. She was so weak that she could not get up in fact she fell going to the bathroom. She has history of stroke and is debilitated on the left side from this. Does report occasional coughing with food and drink and feeling like substance goes down the wrong pipe at times. Denies chest pain or stomach pain. Denies omar dyspnea. She has been around sick contacts specifically her machinist instructor who was sick and was on antibiotics. Has had occasional headaches An episode of nausea vomiting when she was being transported. In the ED she was very weak she was mildly tachycardic at 92 but otherwise stable vital signs she was oxygenating at 90% on room air. Leukocytosis. Is x-ray of the right lower lobe infiltrate. Because of her severe they are underlying debility and her inability to care for herself at home as well as her altered mental status admission was requested. 02/12 Cough seems to be improving. Denies shortness of breath. No overnight events. Sats mid 90s on 1 L nasal cannula. 02/13 Feeling much better today. Slept well. On room air this morning. Feels constipated but otherwise no new complaints. Not complaining of cough this morning. No shortness of breath. 02/14 No overnight events. Patient doing well. On room air. Sleeping well. Urine culture with E. coli. Patient stable for discharge with home caregiver. Discharge diagnosis: UTI pneumonia acute hypoxic respiratory failure weakness diabetes Secondary discharge diagnosis: History of stroke hypertension depression hypomagnesemia chronic kidney disease - Time Spent with Patient Total time spent providing and/or coordinating discharge services: Greater than 30 minutes Medical - DS: Exam - Constitutional Vitals: Vital Signs Temp Pulse Resp BP Pulse Ox 02/13/19 08:00 96.9 F L 55 L 16 105/61 91 02/13/19 04:00 97.6 F 66 16 106/67 92 02/13/19 00:00 97.6 F 61 20 110/59 91 02/12/19 20:00 97.7 F 66 18 100/68 93 02/12/19 16:00 98.7 F 62 16 102/61 95 02/12/19 12:25 18 96 02/12/19 12:00 98.7 F 54 L 16 101/54 93 Intake and Output 02/12/19 02/13/19 02/13/19 21:59 05:59 13:59 Intake Total 1950 Output Total 202 301 Balance 1748 -301 Intake: IV 1350 Sodium Chloride 0.9% 1,000 ml @ 1000 75 mls/hr IV .[id number] [facility] Rx#: [id number] Zithromax 500 mg In Dextrose 5% 250 in Water 250 ml @ 250 mls/hr IV DAILY [facility] Rx#:[id number] Rocephin 2 gm In Dextrose 5% in 50 Water 50 ml @ 100 mls/hr IV DAILY [facility] Rx#:[id number] Oral 600 Output: Void Amount 200 300 # of times incontinent of urine 2 1 Other: Meal Dinner Percent of Meal Consumed 75% Feeding Ability Independent Urine Color Dark Yellow # Voids 1 # of times incontinent of 2 Bowels Weight 106.367 kg Medical - DS: Data Labs on day of discharge: Labs from last 24 hours 02/13/19 02/13/19 02/12/19 04:51 04:51 10:22 WBC 7.3 RBC 3.74 L Hgb 11.0 L Hct 33.4 L MCV 89.3 MCH 29.5 MCHC 33.1 RDW 14.3 Plt Count 204 MPV 9.1 Total Counted 100 Seg Neutrophils % 60 Band Neutrophils % 3 Lymphocytes % 29 Monocytes % (Manual) 5 Eosinophils % (Manual) 1 Basophils % (Manual) 1 Reactive Lymphocytes 1 Platelet Estimate Normal RBC Morphology Normal Sodium 143 Potassium 3.5 Chloride 108 Carbon Dioxide 22 Anion Gap 13.0 BUN 15 Creatinine 1.0 GFR Calculation 54 Glucose 121 H Uric Acid 5.2 Calcium 8.3 L Phosphorus 2.9 Magnesium 2.0 Total Bilirubin 0.4 Direct Bilirubin < 0.2 GGT 17 AST 14 ALT 17 Alkaline Phosphatase 55 Lactate Dehydrogenase 125 Total Protein 5.7 L Albumin 3.2 Globulin 2.5 Albumin/Globulin Ratio 1.3 Triglycerides 72 Ur Random Creatinine 179.5 Ur Random Sodium 02/12/19 10:21 WBC RBC Hgb Hct MCV MCH MCHC RDW Plt Count MPV Total Counted Seg Neutrophils % Band Neutrophils % Lymphocytes % Monocytes % (Manual) Eosinophils % (Manual) Basophils % (Manual) Reactive Lymphocytes Platelet Estimate RBC Morphology Sodium Potassium Chloride Carbon Dioxide Anion Gap BUN Creatinine GFR Calculation Glucose Uric Acid Calcium Phosphorus Magnesium Total Bilirubin Direct Bilirubin GGT AST ALT Alkaline Phosphatase Lactate Dehydrogenase Total Protein Albumin Globulin Albumin/Globulin Ratio Triglycerides Ur Random Creatinine Ur Random Sodium < 20 Medical - DS: A/P - Patient/Caregiver Discharge Instructions Activity: increase activity as tolerated Diet: Consistent Carbohydrate Additional Instructions: Patient is going to be admitted to the hospital under the care of Dr. Thurston. All further treatment modalities and decisions will be carried out by him. Prescriptions: Cefdinir 300 mg PO BID #6 cap - Follow up Plan Follow up with: Bruna Alfonso MD [Primary Care Provider] - Disposition: Home Health Service Prognosis: Fair Rehab Potential: Fair Overall status at discharge: patient is progressing back to baseline Medical - DS: Qual - VTE Deep Vein Thrombosis/Pulmonary Embolism Present on Admission: No
[2019-02-13] MEDS: AZITHROMYCIN 500 MG in DEXTROSE 5% IN WATER 250 ML IV SCH (12:33)
[2019-02-13] MEDS: ATORVASTATIN 40 MG TABLET PO SCH (20:51)
[2019-02-14] MEDS: 0.9 % SODIUM CHLORIDE 10 ML SYRINGE IV SCH (05:46)
[2019-02-14] MEDS: GABAPENTIN 100 MG CAPSULE PO SCH (09:06)
[2019-02-14] MEDS: DOCUSATE SODIUM 100 MG CAPSULE PO SCH (09:06)
[2019-02-14] MEDS: ESCITALOPRAM 20 MG TABLET PO SCH (09:06)
[2019-02-14] MEDS: INSULIN LISPRO 1 UNIT/0.01 ML UNIT SQ SCH (09:06)
[2019-02-14] MEDS: CLOPIDOGREL 75 MG TABLET PO SCH (09:06)
[2019-02-14] MEDS: CALCITONIN NASAL SPRAY 3.7ML BOTTLE NS SCH (09:08)
[2019-02-14] MEDS: TIMOLOL 0.5% OPHTH DROPS BOTTLE 5ML OU SCH (09:08)
[2019-02-14] MEDS: ENOXAPARIN 40 MG/0.4 ML SYRINGE SQ SCH (09:09)
[2019-02-14] MEDS: cefTRIAXone 2 GM in DEXTROSE 5% IN WATER 50 ML IV SCH (09:11)
== END 2019-02-14 11:20 | disposition home health service (06) | DRG 193 ==
LOC: ED 11:53 → MEDSUR 17:27
PROVIDERS: ADMIT Internal Medicine; ATTEND Internal Medicine